=== PATIENT | male | born 1965 | race Caucasian/White ===

== ENCOUNTER 2019-10-16 17:35 | Emergency (ER) | payer SELFPAY ==
[2019-10-16] MEDS ORDERED: Ketorolac 60 MG/2 ML SDV IM ONE (17:53)
[2019-10-16] MEDS ORDERED: HYDROmorphone 1 MG/ML Syringe IM ONE (17:53)
--- NOTE | 2019-10-16 17:59 | EDM.PDOC ---
ED HPI GENERAL MEDICAL PROBLEM - General Chief Complaint: General Stated Complaint: FACE SWOLLEN Time Seen by Provider: 10/16/19 17:39 Source of Information: Reports: Patient History Limitations: Reports: No Limitations - History of Present Illness INITIAL COMMENTS - FREE TEXT/NARRATIVE: The patient presents with dental pain and right lower jaw pain. This started yesterday after he flossed and a chunk of tooth came out. He has no fever or chills. He has no dentist in town. Onset: Sudden Duration: Day(s): (Yesterday) Location: Reports: Face Quality: Reports: Sharp Severity: Severe Improves with: Reports: None Worsens with: Reports: None Associated Symptoms: Reports: No Other Symptoms Tooth/Teeth Pain Score (Numeric/FACES): 8 - Related Data Allergies Allergy/AdvReac Type Severity Reaction Status Date / Time Penicillins Allergy Facial Verified 10/16/19 17:39 Swelling keflex Allergy Swelling Uncoded 10/16/19 17:39 Home Meds: Home Meds Allergy Pill? 10/16/19 [History] Bp Pill? 10/16/19 [History] Metformin. 10/16/19 [History] Past Medical History Endocrine/Metabolic History: Reports: Diabetes, Type II Social & Family History - Tobacco Use Smoking Status *Q: Current Every Day Smoker Years of Tobacco use: 32 Packs/Tins Daily: 1 - Recreational Drug Use Recreational Drug Use: No ED ROS GENERAL - Review of Systems Review Of Systems: See Below Constitutional: Reports: No Symptoms HEENT: Reports: Dental Pain Respiratory: Reports: No Symptoms Cardiovascular: Reports: No Symptoms Endocrine: Reports: No Symptoms GI/Abdominal: Reports: No Symptoms : Reports: No Symptoms Musculoskeletal: Reports: No Symptoms ED EXAM, GENERAL - Physical Exam Exam: See Below Exam Limited By: No Limitations General Appearance: Alert, No Apparent Distress Ears: Normal External Exam Nose: Normal Inspection Throat/Mouth: Other (Pain and swelling to the right lower incissor. He has very poor dentition with multiple missing teeth in the lower jaw.) Head: Atraumatic, Normocephalic Neck: Normal Inspection Respiratory/Chest: No Respiratory Distress Course - Vital Signs Last Recorded V/S: Last Vital Signs Temp 97.1 F 10/16/19 17:39 Pulse 102 H 10/16/19 17:39 Resp BP 154/106 H 10/16/19 17:39 Pulse Ox 96 10/16/19 17:39 - Orders/Labs/Meds Orders: Active Orders 24 hr Category Date Time Status HYDROmorphone [Dilaudid] Med 10/16/19 17:53 Once 1 mg IM ONETIME ONE Ketorolac [Toradol] Med 10/16/19 17:53 Once 60 mg IM ONETIME ONE - Re-Assessments/Exams Free Text/Narrative Re-Assessment/Exam: 10/16/19 17:56 I ordered dilaudid 1mg IM and toradol 60mg IM. He is allergic to penecillin so I will get him on some clindamycin. Departure - Departure Time of Disposition: 18:00 Disposition: Home, Self-Care 01 Condition: Good Clinical Impression: Dental abscess, Pain, dental - Discharge Information *PRESCRIPTION DRUG MONITORING PROGRAM REVIEWED*: No *COPY OF PRESCRIPTION DRUG MONITORING REPORT IN PATIENT SKYLAR: No Referrals: PCP,None [Primary Care Provider] - Additional Instructions: Take the clindamycin 4 times per day for 10 days. Take motrin or tylenol as needed for pain. If that does not help, try the hydrocodone. Follow up with a Dentist within a week. Please return if you are worse. Sepsis Event Note - Evaluation Sepsis Screening Result: No Definite Risk - Focused Exam Vital Signs: Vital Signs Temp Pulse BP Pulse Ox 10/16/19 17:39 97.1 F 102 H 154/106 H 96 Date Exam was Performed: 10/16/19 Time Exam was Performed: 17:53 - My Orders Last 24 Hours: My Active Orders 10/16/19 17:53 HYDROmorphone [Dilaudid] 1 mg IM ONETIME ONE Ketorolac [Toradol] 60 mg IM ONETIME ONE - Assessment/Plan Last 24 Hours: My Active Orders 10/16/19 17:53 HYDROmorphone [Dilaudid] 1 mg IM ONETIME ONE Ketorolac [Toradol] 60 mg IM ONETIME ONE
== END 2019-10-16 18:28 | disposition home or self-care (01) ==
LOC: JD.ED 17:35
DX: K04.7 Periapical abscess without sinus (principal); F17.210 Nicotine dependence, cigarettes, uncomplicated; E11.9 Type 2 diabetes mellitus without complications; Z88.0 Allergy status to penicillin; Z88.1 Allergy status to other antibiotic agents
CPT/HCPCS: 96372; 99283; J1170; J1885

== ENCOUNTER 2019-11-24 21:55 | Emergency (ER) | payer OTHER ==
[2019-11-25] MEDS ORDERED: Doxycycline 100 MG Cap PO STA (01:50)
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
[2019-11-25] MEDS ORDERED: FLU Vacc QS2019-20(6MOS+)/PF 60 MCG/0.5 ML SYRINGE IM ONE (02:00)
== END 2019-11-25 02:20 | disposition home or self-care (01) ==
LOC: JD.ED 21:55
DX: L03.313 Cellulitis of chest wall (principal); E11.9 Type 2 diabetes mellitus without complications; I10 Essential (primary) hypertension; F17.210 Nicotine dependence, cigarettes, uncomplicated; Z88.0 Allergy status to penicillin; Z79.84 Long term (current) use of oral hypoglycemic drugs; Z79.899 Other long term (current) drug therapy; Z88.1 Allergy status to other antibiotic agents; Z23 Encounter for immunization
CPT/HCPCS: 87641; 90471; 90686; 99283; A9270; G0008